=== PATIENT | male | born 1985 | race African-American/Black ===

== ENCOUNTER 2023-09-25 12:11 | Emergency (ER) | payer OTHER ==
[~2023-09-25] VITALS: Ht 177.8 cm; Wt 54.4 kg
[2023-09-25] MEDS ORDERED: PENICILLIN VK500 MG PO (12:47)
== END 2023-09-25 12:51 | disposition home or self-care (01) ==
LOC: ED 12:11 → EDBD 12:16 → ED 12:16
DX: K04.7 Periapical abscess without sinus (principal)

== ENCOUNTER 2024-07-28 20:18 | Emergency (ER) | payer OTHER ==
[~2024-07-28] VITALS: Ht 182.9 cm; Wt 61.2 kg
[~2024-07-28 20:18] MED LIST: PENICILLIN VK500 MG PO
[2024-07-28] MEDS ORDERED: SODIUM CHLORIDE 0.9% 1,000 ML IV ONE (20:45)
[2024-07-28] MEDS ORDERED: Thiamine 200 MG/2 ML VIAL IV ONE (20:45)
[2024-07-28 20:56] LABS: BASO % 0.4 % (0.0-1.0); EOS # 0.2 10*3/uL (0.0-0.4); EOS % 1.6 % (1.0-4.0); HEMATOCRIT 45.7 % (42.0-52.0); MEAN CELL VOLUME 95.6 fl (80.0-94.0); MEAN CORPUSCULAR HGB 32.2 pg (27.0-31.0); MEAN CORPUSCULAR HGB CONC 33.7 g/dl (33.0-37.0); MEAN PLATELET VOLUME 9.5 fl (9.6-12.3); MONO # 0.4 10*3/uL (0.1-1.0); MONO % 4.6 % (3.0-9.0); NEUT # 4.1 10*3/uL (2.3-7.9); NEUT % 45.1 % (47.0-73.0); PLATELET COUNT AUTOMATED 269 10*3/uL (130-400); RED BLOOD COUNT 4.78 10*6/uL (4.50-5.90); RED CELL DISTRI WIDTH 13.8 % (0-14.5); WHITE BLOOD COUNT 9.1 10*3/uL (4.8-10.8)
[2024-07-28 21:13] LABS: ALKALINE PHOSPHATASE 104 U/L (46-116); BUN 10 mg/dl (9-23); CHLORIDE 105 mmol/L (98-107); CPK 192 U/L (34-171); ETHYL ALCOHOL 294.7 mg/dl (<3); POTASSIUM 4.5 mmol/L (3.4-5.1); SGPT/ALT 17 U/L (5-49); TOTAL PROTEIN 8.7 gm/dL (6.0-8.0)
[2024-07-28 21:24] LABS: URINE AMPHETAMINES Positive (1000ng/ml); URINE BARBITURATES Negative (200ng/ml); URINE BENZODIAZEPINES Negative (200ng/ml); URINE CANNABINOIDS (THC) Negative (50ng/ml); URINE COCAINE Negative (300ng/ml); URINE METHADONE Negative (300ng/ml); URINE OPIATES Negative (300ng/ml); URINE PHENCYCLIDINE Negative (25ng/ml)
== END 2024-07-29 02:22 | disposition left against medical advice (07) ==
LOC: ED 20:18
PROVIDERS: Nurse Practitioner Family
DX: F10.129 Alcohol abuse with intoxication, unspecified (principal); Z79.2 Long term (current) use of antibiotics; Z53.29 Procedure and treatment not carried out because of patient's decision for other reasons; Y90.8 Blood alcohol level of 240 mg/100 ml or more

== ENCOUNTER 2024-11-14 08:02 | Emergency (ER) | payer MEDICARE ==
[~2024-11-14] VITALS: Ht 177.8 cm; Wt 54.4 kg
== END 2024-11-14 08:36 | disposition home or self-care (01) ==
LOC: ED 08:02
DX: Z20.2 Contact with and (suspected) exposure to infections with a predominantly sexual mode of transmission (principal); Z79.899 Other long term (current) drug therapy